=== PATIENT | female | born 1955 | race Caucasian/White ===

== ENCOUNTER 2022-05-25 07:02 | Day surgery (SDC) | payer MEDICARE, BC ==
[2022-05-24 17:15] LABS: BASOPHILS % (AUTO) 0.2 % (0-1); EOSINOPHILS # (AUTO) 0.1 X10'3 (0-0.9); EOSINOPHILS % (AUTO) 1.9 % (0-6); HEMATOCRIT 36.8 % (35.0-45.0); HEMOGLOBIN 12.5 g/dl (12.0-16.0); LYMPHOCYTES # (AUTO) 1.5 X10'3 (1.1-4.8); LYMPHOCYTES % (AUTO) 28.2 % (21-51); MEAN CORPUSCULAR HEMOGLOBIN 30.6 PG (27.0-31.0); MEAN CORPUSCULAR HGB CONC 33.9 g/dL (33.0-36.5); MEAN CORPUSCULAR VOLUME 90.4 FL (78-98); MEAN PLATELET VOLUME 9.2 FL (7.4-10.4); MONOCYTES # (AUTO) 0.4 X10'3 (0-0.9); MONOCYTES % (AUTO) 7.5 % (2-12); NEUTROPHILS # (AUTO) 3.3 X10'3 (1.8-7.7); NEUTROPHILS % (AUTO) 62.2 % (42-75); PLATELET COUNT 153 X10'3 (140-440); RED BLOOD COUNT 4.08 X10'6 (4.20-5.60); RED CELL DISTRIBUTION WIDTH 14.9 % (11.5-14.5); WHITE BLOOD COUNT 5.3 X10'3 (4.5-11.0)
[2022-05-24 17:25] LABS: ALBUMIN 3.9 G/DL (3.4-5.0); ANION GAP 5 (8-16); BLOOD UREA NITROGEN 20 MG/DL (7-18); BUN/CREATININE RATIO 28.2 (6.6-38.0); CALCIUM 9.7 MG/DL (8.5-10.1); CHLORIDE 106 MMOL/L (99-107); CREATININE 0.71 MG/DL (0.40-0.90); GLUCOSE 127 MG/DL (70-104); POTASSIUM 3.6 MMOL/L (3.5-5.1); SODIUM 142 MMOL/L (135-145); TOTAL CARBON DIOXIDE 30.7 MMOL/L (24-32); eGFR 82 ML/MIN
[2022-05-24 17:32] LABS: APTT 29 SECONDS (22-32)
[2022-05-25] VITALS (14 sets, daily range): BP systolic 106–164; BP diastolic 49–105
[~2022-05-25] VITALS: Ht 165.1 cm; Wt 100.3 kg
[~2022-05-25 07:02] MED LIST: ASPI-500; ATOR40TA71 PO; CALC-336; CARV3.122 PO; CHOL100046 PO; CLOP75TA34 PO; MULT-342 PO; OMEG1CAP61 PO; ONDA4TAB6 PO; VALS160T30 PO
[2022-05-25] MEDS ORDERED: LIDOcaine 1%/PF 5ML 10 MG/ML VIAL ONE (07:17)
[2022-05-25] MEDS ORDERED: fentaNYL/PF 50MCG/1 ML 2ML syringe ONE (07:17)
[2022-05-25] MEDS ORDERED: verapamil 2.5 mg/ml inj IV ONE (07:17)
[2022-05-25] MEDS ORDERED: nitroGLYCERIN-Tridil 50MG/D5W 250 ML IV ONE (07:17)
[2022-05-25] MEDS ORDERED: midazolam 1 mg/ML 2ml injection ONE (07:17)
[2022-05-25] MEDS ORDERED: heparin 1,000unit/ml 10ml vial 10 ML ONE (07:18)
[2022-05-25] MEDS ORDERED: iohexol 350MG/ML 100ml bottle IV ONE ×3 (07:18→09:22)
[2022-05-25] MEDS ORDERED: normal saline 1,000 ML IV SCH (07:20)
[2022-05-25] MEDS ORDERED: diphenhydrAMINE 25mg capsule PO PRN (07:20)
[2022-05-25] MEDS ORDERED: LORazepam 0.5 MG tablet PO PRN (07:20)
[2022-05-25] MEDS ORDERED: CLOP75TA15 PO (08:10)
[2022-05-25] MEDS ORDERED: ATOR40TA72 PO (08:10)
[2022-05-25] MEDS ORDERED: VALS80TA2 PO (08:13)
[2022-05-25] MEDS ORDERED: CRAN405C (08:13)
[2022-05-25] MEDS ORDERED: CARV3.1244 PO (08:14)
[2022-05-25] MEDS ORDERED: HEPARIN SOD,PORK IN 0.45% NACL 250 ML IV ONE (08:46)
[2022-05-25] MEDS ORDERED: clopidogrel 300mg tablet ONE (09:29)
--- NOTE | 2022-05-25 10:00 | NUR ---
Bedside report received from AMANDA Coker. Patient back from [employer] [place] s/p angiogram with PCI. Vasc band to right radial in place. No hematoma/bleeding noted. Pulse intact. Vital signs stable. Heparin gtt @ 1000 units/hour. D/C heparin at 1045.
[2022-05-25 10:17] LABS: ISTAT Hct MIX 35 %PCV (35-48); ISTAT O2 SATURATION MIX VENOUS 60 % (60-80); ISTAT SOURCE BLNK
[2022-05-25 10:17] LABS: ISTAT Hct MIX 35 %PCV (35-48); ISTAT O2 SATURATION MIX VENOUS 91 % (60-80); ISTAT SOURCE BLNK
--- NOTE | 2022-05-25 10:45 | NUR ---
Heparin gtt discontinued.
== END 2022-05-25 18:00 | disposition home or self-care (01) ==
LOC: SSTAY O 07:02
PROVIDERS: ATTEND Internal Medicine Cardiovascular Disease
DX: I25.10 Atherosclerotic heart disease of native coronary artery without angina pectoris (principal); I25.82 Chronic total occlusion of coronary artery; I10 Essential (primary) hypertension; E78.5 Hyperlipidemia, unspecified; G47.33 Obstructive sleep apnea (adult) (pediatric); Z95.5 Presence of coronary angioplasty implant and graft; Z79.01 Long term (current) use of anticoagulants; Z79.899 Other long term (current) drug therapy; Z98.890 Other specified postprocedural states; Z98.51 Tubal ligation status; Z80.8 Family history of malignant neoplasm of other organs or systems
CPT/HCPCS: 36415; 76937; 80048; 82803; 85014; 85025; 85347; 85610; 85730; 93005; 93460; 99152; 99153; A6258; C1725; C1751; C1769; C1874; C1894; C9600; J1644; J2250; J3010; J3490; J7030; Q0163; Q9967; 93458; A4620; A6402